=== PATIENT | female | born 1985 | race Caucasian/White ===

== ENCOUNTER 2021-01-02 17:23 | Emergency (ER) | payer OTHER ==
[2021-01-02 17:36] VITALS: BP 118/49; PULSE 95; TEMP 98.6; BMI 29.2
== END 2021-01-02 19:43 | disposition left against medical advice (07) ==
LOC: JERFT 17:23 → JER 17:23
DX: O36.8190 Decreased fetal movements, unspecified trimester, not applicable or unspecified (principal)
CPT/HCPCS: 99281-25

== ENCOUNTER 2021-05-22 06:20 | Inpatient (IN) | payer OTHER ==
[2021-05-22 06:58] VITALS: BMI 32.8
[2021-05-22] MEDS ORDERED: ONDANSETRON 4 MG/2 ML VIAL IVPUSH PRN (07:43)
[2021-05-22] MEDS ORDERED: morphine SULFATE/PF 0.5 MG/ML (2cc Syringe - QUVA) EP ONE (07:43)
[2021-05-22] MEDS ORDERED: CLINDAMYCIN PHOSPHATE 600 MG/4 ML VIAL ONE (07:51)
[2021-05-22] MEDS ORDERED: CITRIC ACID/SODIUM CITRATE 30 ML UNIT-DOSE CUP PO ONE (08:19)
[2021-05-22] MEDS ORDERED: ELECTROLYTE-148 SOLN 1,000 ML IV SCH (08:30)
[2021-05-22] MEDS ORDERED: PHENYLEPHRINE HCL 10 MG/1 ML SINGLE DOSE VIAL ONE (08:40)
[2021-05-22] MEDS ORDERED: OXYTOCIN 10 UNITS/ML VIAL ONE (08:47)
[2021-05-22] MEDS ORDERED: ONDANSETRON 4 MG/2 ML VIAL ONE (09:05)
[2021-05-22] MEDS ORDERED: IBUPROFEN 800 MG/8 ML IJ IVPB PRN (09:17)
[2021-05-22] MEDS ORDERED: BENZOCAINE 28 GM HEMORRHOIDAL OINTMENT TP PRN (09:17)
[2021-05-22] MEDS ORDERED: oxyCODONE HCL 5 MG TABLET PO PRN (09:17)
[2021-05-22] MEDS ORDERED: BENZOCAINE 20% 57 GM BOTTLE TP PRN (09:17)
[2021-05-22] MEDS ORDERED: METHYLERGONOVINE MALEATE 0.2 MG/1 ML AMP IM PRN (09:17)
[2021-05-22] MEDS ORDERED: WITCH HAZEL 50% (TUCKS) 40 PAD/JAR PAD TP PRN (09:17)
[2021-05-22] MEDS: OXYTOCIN 20 UNITS in 0.9% NS 20 UNIT/1,000 ML INFUS.BAG IV SCH ×2 (09:35→11:10)
[2021-05-22] MEDS: FERROUS SO4 325 MG TABLET (FP) PO SCH ×2 (10:00→22:28)
[2021-05-22] MEDS: PRENATAL VITAMINS W/ FOLIC ACID TABLET (FP) PO SCH (10:00)
[2021-05-22] MEDS ORDERED: OXYTOCIN 20 UNITS in 0.9% NS 20 UNIT/1,000 ML INFUS.BAG IV ONE (11:02)
[2021-05-23] MEDS ORDERED: BISACODYL 10 MG SUPP.RECT RC PRN (09:17)
[2021-05-23 09:42] LABS: BASO % 0.2 % (0-2.0); EOS % 0.4 % (0-4.5); HEMATOCRIT 34.4 % (32.4-45.2); HEMOGLOBIN 11.6 GM/dL (10.7-15.3); LYMPH % 8.6 % (8-40); MCH 30.9 pg (25.7-33.7); MCHC 33.8 g/dl (32.0-36.0); MEAN CELL VOLUME 91.6 fl (80-96); MEAN PLT VOLUME 8.8 fl (7.5-11.1); MONO % 6.2 % (3.8-10.2); NEUT % 84.6 % (42.8-82.8); PLATELET COUNT 171 10^3/uL (134-434); RBC 3.75 M/mm3 (3.60-5.2); RDW 14.1 % (11.6-15.6); WHITE BLOOD COUNT 12.6 K/mm3 (4.0-10.0)
[2021-05-23] MEDS: PRENATAL VITAMINS W/ FOLIC ACID TABLET (FP) PO SCH (10:10)
[2021-05-23] MEDS: SIMETHICONE 80 MG TAB.CHEW (FP) PO PRN ×2 (10:10→19:52)
[2021-05-23] MEDS: FERROUS SO4 325 MG TABLET (FP) PO SCH ×2 (10:10→22:32)
[2021-05-23] MEDS: IBUPROFEN 600 MG TABLET (FP) PO PRN ×2 (10:10→19:52)
[2021-05-23] MEDS: ACETAMINOPHEN 325 MG TABLET (FP) PO PRN ×2 (10:11→19:52)
[2021-05-24] MEDS: IBUPROFEN 600 MG TABLET (FP) PO PRN ×4 (05:22→21:48)
[2021-05-24] MEDS: ACETAMINOPHEN 325 MG TABLET (FP) PO PRN ×4 (05:22→21:47)
[2021-05-24] MEDS: SIMETHICONE 80 MG TAB.CHEW (FP) PO PRN ×4 (05:23→21:47)
[2021-05-24] MEDS: PRENATAL VITAMINS W/ FOLIC ACID TABLET (FP) PO SCH (09:40)
[2021-05-24] MEDS: FERROUS SO4 325 MG TABLET (FP) PO SCH ×2 (09:41→21:47)
[2021-05-25] MEDS: ACETAMINOPHEN 325 MG TABLET (FP) PO PRN ×3 (03:11→21:42)
[2021-05-25] MEDS: SIMETHICONE 80 MG TAB.CHEW (FP) PO PRN ×3 (03:11→21:43)
[2021-05-25] MEDS: IBUPROFEN 600 MG TABLET (FP) PO PRN ×4 (03:24→21:42)
[2021-05-25 08:55] LABS: BASO % 0.2 % (0-2.0); EOS % 2.7 % (0-4.5); HEMATOCRIT 31.5 % (32.4-45.2); HEMOGLOBIN 10.8 GM/dL (10.7-15.3); LYMPH % 17.6 % (8-40); MCH 31.6 pg (25.7-33.7); MCHC 34.4 g/dl (32.0-36.0); MEAN CELL VOLUME 91.9 fl (80-96); MONO % 6.2 % (3.8-10.2); NEUT % 73.3 % (42.8-82.8); PLATELET COUNT 226 10^3/uL (134-434); RBC 3.43 M/mm3 (3.60-5.2); RDW 13.9 % (11.6-15.6); WHITE BLOOD COUNT 7.6 K/mm3 (4.0-10.0)
[2021-05-25] MEDS: PRENATAL VITAMINS W/ FOLIC ACID TABLET (FP) PO SCH (09:47)
[2021-05-25] MEDS: FERROUS SO4 325 MG TABLET (FP) PO SCH ×2 (09:47→21:43)
[2021-05-26] MEDS: IBUPROFEN 600 MG TABLET (FP) PO PRN (04:39)
[2021-05-26] MEDS: ACETAMINOPHEN 325 MG TABLET (FP) PO PRN (04:40)
[2021-05-26] MEDS: SIMETHICONE 80 MG TAB.CHEW (FP) PO PRN (04:41)
[2021-05-26] MEDS: PRENATAL VITAMINS W/ FOLIC ACID TABLET (FP) PO SCH (09:07)
[2021-05-26] MEDS: FERROUS SO4 325 MG TABLET (FP) PO SCH (09:07)
[2021-05-26 09:49] VITALS: BP 108/70; PULSE 74; TEMP 99
== END 2021-05-26 11:15 | disposition home or self-care (01) | DRG 540 ==
LOC: JLDR 06:20 → J3W 11:05
PROVIDERS: ADMIT Obstetrics & Gynecology; ATTEND Obstetrics & Gynecology
PROC: 10D00Z1 Extraction of Products of Conception, Low, Open Approach (ICD-10-PCS; principal; 2021-05-22)
PROC: 0UB70ZZ Excision of Bilateral Fallopian Tubes, Open Approach (ICD-10-PCS; 2021-05-22)
DX: O34.211 Maternal care for low transverse scar from previous cesarean delivery (principal); N85.8 Other specified noninflammatory disorders of uterus; O24.429 Gestational diabetes mellitus in childbirth, unspecified control; O40.3XX0 Polyhydramnios, third trimester, not applicable or unspecified; O34.13 Maternal care for benign tumor of corpus uteri, third trimester; D25.9 Leiomyoma of uterus, unspecified; O36.63X0 Maternal care for excessive fetal growth, third trimester, not applicable or unspecified; Z3A.38 38 weeks gestation of pregnancy; Z30.2 Encounter for sterilization; Z37.0 Single live birth
CPT/HCPCS: 36415; 85025; 88302-TC; 88307-TC